=== PATIENT | female | born 1975 | race Hispanic/Latino ===

== ENCOUNTER 2019-10-06 06:59 | Day surgery (SDC) | payer MEDICAID ==
[2019-10-06] VITALS (8 sets, daily range): BP systolic 102–136; BP diastolic 64–88
[~2019-10-06 06:59] MED LIST: SODIUM CHLORIDE 0.9% 1000ML 1,000 ML IV ONE
[2019-10-06] MEDS ORDERED: ALPR0.255 PO (08:52)
[2019-10-06] MEDS ORDERED: OMEP40CA13 PO (08:52)
[2019-10-06] MEDS ORDERED: FAMO40TA7 PO (08:52)
[2019-10-06] MEDS ORDERED: TRAM50TA4 PO (08:52)
[2019-10-06] MEDS ORDERED: ZENPEP PO (08:52)
[2019-10-06] MEDS ORDERED: PROPOFOL 10 MG/ML 20ML VIAL IV ONE ×2 (09:25)
== END 2019-10-06 10:15 | disposition home or self-care (01) ==
LOC: DAH 06:59 → ENDO 06:59
PROVIDERS: ATTEND Internal Medicine
DX: R10.10 Upper abdominal pain, unspecified (principal); K29.50 Unspecified chronic gastritis without bleeding; K83.8 Other specified diseases of biliary tract; K31.89 Other diseases of stomach and duodenum; K21.9 Gastro-esophageal reflux disease without esophagitis; F41.9 Anxiety disorder, unspecified; R93.3 Abnormal findings on diagnostic imaging of other parts of digestive tract; B18.2 Chronic viral hepatitis C; Z90.49 Acquired absence of other specified parts of digestive tract; Z11.59 Encounter for screening for other viral diseases
CPT/HCPCS: 36415; 43237; 43239; 88305; 88342; A4215; A4221; A4222; A4223; A4606; A4620; A4663; J2704 ×2; J7030; U0003; 43200

== ENCOUNTER 2021-05-31 11:18 | Day surgery (SDC) | payer MEDICAID ==
[~2021-05-31] VITALS: Ht 165.1 cm; Wt 79.4 kg
[2021-05-31] VITALS (7 sets, daily range): BP systolic 103–126; BP diastolic 60–88
[~2021-05-31 11:18] MED LIST changes: +0.9%NACL 1000ML 1,000 ML IV ONE; +ALPR0.255 PO; +FAMO40TA7 PO; +OMEP40CA21 PO; -SODIUM CHLORIDE 0.9% 1000ML 1,000 ML IV ONE; +TRAM50TA4 PO; +ZENPEP PO
[2021-05-31] MEDS ORDERED: DICY20TA3 PO (12:37)
[2021-05-31] MEDS ORDERED: KETO10TA2 PO (12:37)
[2021-05-31] MEDS ORDERED: LIPA1CAP18 PO (12:37)
[2021-05-31] MEDS ORDERED: ALPR1TAB2 PO (12:37)
[2021-05-31] MEDS ORDERED: PROPOFOL 10 MG/ML 20ML VIAL IV ONE ×2 (13:00→13:03)
== END 2021-05-31 14:05 | disposition home or self-care (01) ==
LOC: ENDO 11:18
PROVIDERS: ATTEND Internal Medicine
DX: R93.3 Abnormal findings on diagnostic imaging of other parts of digestive tract (principal); R10.12 Left upper quadrant pain; Z20.822 Contact with and (suspected) exposure to COVID-19; K86.2 Cyst of pancreas; K29.70 Gastritis, unspecified, without bleeding; F41.9 Anxiety disorder, unspecified; K21.9 Gastro-esophageal reflux disease without esophagitis; J45.909 Unspecified asthma, uncomplicated; E66.9 Obesity, unspecified; Z80.0 Family history of malignant neoplasm of digestive organs; Z86.19 Personal history of other infectious and parasitic diseases; Z79.899 Other long term (current) drug therapy; Z98.890 Other specified postprocedural states
CPT/HCPCS: 43259; A4215 ×2; A4221; A4222; A4223; A4606; A4620; A4657; A4663; J3490 ×2; J7030; 43235; J2704